=== PATIENT | female | born 1980 | race Caucasian/White ===

== ENCOUNTER 2017-02-24 22:35 | Emergency (ER) | payer OTHER ==
[2017-02-25] MEDS ORDERED: LIDOCAINE 1% INJ-PF (10 MG/ML) 30 ML SDV INJ ONE (00:13)
--- NOTE | 2017-02-25 00:20 | ER Document Report ---
ED General - General Chief Complaint: Laceration Stated Complaint: HAND LACERATION Mode of Arrival: Ambulatory Information source: Patient Notes: Patient presents emergency department with complaints of left hand laceration. She reports she was cutting potatoes with a new knife and cut her hand. No active bleeding, patient has full range of motion no deficits. Patient is right hand dominant. TRAVEL OUTSIDE OF THE [place] IN LAST 30 DAYS: No - HPI Onset: Just prior to arrival Onset/Duration: Sudden, Persistent Quality of pain: Achy Severity: Moderate Pain Level: 3 Associated symptoms: None Exacerbated by: Denies Relieved by: Denies Similar symptoms previously: No Recently seen / treated by doctor: No - Related Data Allergies/Adverse Reactions: No Known Allergies Allergy (Verified 05/20/16 11:00) Past Medical History - General Information source: Patient - Social History Smoking Status: Unknown if Ever Smoked Chew tobacco use (# tins/day): No Frequency of alcohol use: Occasional Drug Abuse: None Lives with: Family Family History: Reviewed & Not Pertinent Patient has suicidal ideation: No Patient has homicidal ideation: No - Medical History Medical History: Negative Renal/ Medical History: Denies: Hx Peritoneal Dialysis Past Surgical History: Reports: Hx Abdominal Surgery - hernia repair, Hx Section - x2, Hx Gynecologic Surgery - d&c x2, Hx Tubal Ligation - Immunizations Hx Diphtheria, Pertussis, Tetanus Vaccination: Yes Review of Systems - Review of Systems Notes: Review HPI for review of systems., All other systems negative Physical Exam - Vital signs Vitals: Temp Pulse Resp BP Pulse Ox 97.7 F 101 H 18 126/88 H 95 02/24/17 23:28 02/24/17 23:28 02/24/17 23:28 02/24/17 23:28 02/24/17 23:28 - Notes Notes: PHYSICAL EXAMINATION: GENERAL: Well-appearing and in no acute distress anxious HEAD: Atraumatic, normocephalic. EYES: Pupils equal round and reactive to light, extraocular movements intact, sclera anicteric, conjunctiva are normal. ENT: nares patent, Moist mucous membranes. NECK: Normal range of motion, supple without lymphadenopathy LUNGS: CTAB and equal. No wheezes rales or rhonchi. HEART: Regular rate and rhythm without murmurs EXTREMITIES: Normal range of motion, no pitting edema. No cyanosis. NEUROLOGICAL: Cranial nerves grossly intact. Normal sensory/motor exams. PSYCH: Normal mood, normal affect. SKIN: Warm, Dry, normal turgor,laceration to left palm between thumb and index finger, ~ 1.5 cm irregular flap - Skin Skin Temperature: Warm Skin Moisture: Dry Skin irregularity: Laceration Location of irregularity: Extremities - left hand Character of irregularity: Linear - flap Irregularity with: Tenderness Course - Re-evaluation Re-evalutation: 02/25/17 00:44 while trying to suture the patients hand she became extremely anxious and declines sutures. Emotional support was provided and pt still declined. She requests Steri-Strips. We discussed Steri-Strips versus sutures. The laceration is in a very awkward area which she flexes her hand often, Im worried the area will not close well but patient is very anxious and refusing sutures. pt was instructed on s/s infection, care of the steri strips 02/25/17 00:52 Upon discharge patient has for something stronger for the pain [employer] provided - Vital Signs Vital signs: Temp Pulse Resp BP Pulse Ox 97.7 F 100 16 119/72 96 02/24/17 23:28 02/25/17 01:03 02/25/17 01:03 02/25/17 01:03 02/25/17 01:03 Procedures - Immobilization Left Hand Immobilizer type: Mike wrap Performed by: PCT Post-Proc Neuro Vasc Exam: Unchanged from pre-exam - Laceration/Wound Repair Left Hand Wound length (cm): 2 Wound's Depth, Shape: Linear, Irregular, Flap Laceration pre-procedure: Shur-Clens applied Wound explored: Clean Wound Repaired With: Steri-strips Post-procedure NV exam normal: Yes Hands front picture: 1 - irregular linear flap laceration ~ 1.2-2cm lac Discharge - Discharge Clinical Impression: Laceration, Elevated blood pressure reading Disposition: HOME, SELF-CARE Instructions: Soap Cleansing ([facility]), Care of Steri-Strip Closure ([facility]) Additional Instructions: *You have been treated for a laceration to your left hand *Let the steri strips roll off, do not pull the steri strips off *Keep the hand clean, Monitor the site for signs of infection such as increasing pain, redness, swelling, warmth *Follow up with your primary care provider within one week for recheck *Return to ED for signs of infection, worsening condition, changes, needs, concerns Monitor your blood pressure. Your blood pressure was elevated today. This may be because you were anxious, in pain or because you need medication. It is important to follow up with your primary care provider for full evaluation. Forms: Elevated Blood Pressure
[2017-02-25] MEDS ORDERED: HYDROCODONE/ACETAMINOPHEN 5-325 MG 6 TAB/DSPK PO PRN (00:51)
[2017-02-25 01:04] VITALS: BP 119/72
== END 2017-02-25 01:03 | disposition home or self-care (01) ==
LOC: ER 22:35
PROC: 0HQGXZZ Repair Left Hand Skin, External Approach (ICD-10-PCS; principal; 2017-02-24)
DX: S61.412A Laceration without foreign body of left hand, initial encounter (principal); R03.0 Elevated blood-pressure reading, without diagnosis of hypertension; W26.0XXA Contact with knife, initial encounter; Y93.G1 Activity, food preparation and clean up
CPT/HCPCS: 99282

== ENCOUNTER 2018-06-06 21:21 | Emergency (ER) | payer OTHER ==
[2018-06-07] MEDS ORDERED: KETOROLAC TROMETHAMINE INJ/PF 30 MG/1 ML SDV IM ONE (01:17)
[2018-06-07] MEDS ORDERED: HYDROCODONE/ACETAMINOPHEN 5-325 MG (6 TAB/ER DISP) PO PRN (01:17)
[2018-06-07] MEDS ORDERED: METHOCARBAMOL 500 MG TABLET PO ONE (01:17)
[2018-06-07 01:18] VITALS: BP 120/67
--- NOTE | 2018-06-07 01:18 | ER Document Report ---
ED Neck/Back Problem - General Chief Complaint: Neck Problem Stated Complaint: NECK PAIN Time Seen by Provider: 06/07/18 00:47 Mode of Arrival: Ambulatory Information source: Patient Notes: 38-year-old female presented to ED for for complaint of severe pain to the left neck. She stated the pain started about May 08 and is she had a primary care doctor visit on 10 May. Primary care doctor offered to give her injections into the neck and the patient stated that she was too afraid to get injections into her neck. A week later the patient states the pain was so bad she went back to her primary care doctor and got 2 injections into the left side of her neck and one into the right upper arm. She states she also got a prescription for tramadol 50 mg 20 tablets which she states she took as instructed but they did not help her pain. She states she also had a x-ray and they told her that she had slight scoliosis and her neck was curved in the wrong direction and that this may be causing some of her pain. She states that she was supposed to go on vacation the day after the injection so she went on her vacation and did all of the normal things but the pain did not get better in fact it got worse. She states she came home on Sunday and by Sunday she was in the bed all day due to the pain. She states she stayed in the bed most of the day Sunday and Sunday got up Sunday evening because she thought maybe that getting up and moving around improve the pain, but it did not it actually made worse. She states she got up and down most of the day and finally came into the ER when the pain got worse she cannot stand it anymore. 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 She states she has a history of ulcerative colitis ADHD and GERD and takes medications prescribed for those ailments. TRAVEL OUTSIDE OF THE [place] IN LAST 30 DAYS: No - HPI Patient complains to provider of: Neck - Left Onset: Other - Since May 08 Onset: Gradual Timing: Still present, Worse Quality of pain: Burning, Cramping Severity: Severe Pain Level: 5 Context: Turning Recent injury: No Associated symptoms: Like prior neck/back pain, Radiation to arm, Upper back pain. denies: Radiation to chest, Radiation to leg, Sensory loss, Sweaty, Unable to urinate, Lower back pain Exacerbated by: Movement of neck Relieved by: Nothing Similar symptoms previously: Yes Recently seen / treated by doctor: Yes - Related Data Allergies/Adverse Reactions: No Known Allergies Allergy (Verified 05/20/16 11:00) Past Medical History - General Information source: Patient - Social History Smoking Status: Never Smoker Cigarette use (# per day): No Chew tobacco use (# tins/day): No Smoking Education Provided: No Frequency of alcohol use: Occasional Drug Abuse: None Lives with: Family Family History: Reviewed & Not Pertinent Patient has suicidal ideation: No Patient has homicidal ideation: No - Past Medical History 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 Pulmonary Medical History: Reports: None EENT Medical History: Reports: None Neurological Medical History: Reports: None Endocrine Medical History: Reports: None Renal/ Medical History: Reports: None Malignancy Medical History: Reports: None GI Medical History: Reports: Hx Ulcerative Colitis, Hx Colonoscopy Musculoskeletal Medical History: Reports None Skin Medical History: Reports None Psychiatric Medical History: Reports: Hx Attention Deficit Hyperactivity Disorder Traumatic Medical History: Reports: None Infectious Medical History: Reports: None Past Surgical History: Reports: Hx Section - x2, Hx Gynecologic Surgery - d&c x2, Hx Inguinal Hernia, Hx Tubal Ligation - Immunizations Hx Diphtheria, Pertussis, Tetanus Vaccination: Yes Review of Systems - Review of Systems Constitutional: No symptoms reported EENT: No symptoms reported Cardiovascular: No symptoms reported Respiratory: No symptoms reported Gastrointestinal: No symptoms reported Genitourinary: No symptoms reported Female Genitourinary: No symptoms reported Musculoskeletal: Back pain, Muscle pain, Neck pain Skin: No symptoms reported Hematologic/Lymphatic: No symptoms reported Neurological/Psychological: No symptoms reported -: Yes All other systems reviewed and negative Physical Exam - Vital signs Vitals: Temp Pulse Resp BP Pulse Ox 98.4 F 98 18 120/67 100 06/06/18 21:25 06/06/18 21:25 06/06/18 21:25 06/06/18 21:25 06/06/18 21:25 Interpretation: Normal - General General appearance: Appears well, Alert - HEENT Head: Normocephalic, Atraumatic Eyes: Normal Pupils: PERRL - Respiratory Respiratory status: No respiratory distress Chest status: Nontender Breath sounds: Normal Chest palpation: Normal - Cardiovascular Rhythm: Regular Heart sounds: Normal auscultation Murmur: No - Abdominal Inspection: Normal Distension: No distension Bowel sounds: Normal Tenderness: Nontender Organomegaly: No organomegaly - Back Back: Normal, Tender - Left side of the neck crossed the left shoulder and down the arm. No: Deformity/step-off, CVA tenderness, Vertebra tenderness, Scars, Wounds - Extremities General upper extremity: Normal inspection, Nontender, Normal color, Normal ROM , Normal temperature General lower extremity: Normal inspection, Nontender, Normal color, Normal ROM , Normal temperature, Normal weight bearing. No: Davie's sign - Neurological Neuro grossly intact: Yes Cognition: Normal Orientation: AAOx4 Justice Coma Scale Eye Opening: Spontaneous Justice Coma Scale Verbal: Oriented Justice Coma Scale Motor: Obeys Commands Justice Coma Scale Total: 15 Speech: Normal Motor strength normal: LUE, RUE, LLE, RLE Sensory: Normal - Psychological Associated symptoms: Normal affect, Agitated, Anxious - Due to the pain - Skin Skin Temperature: Warm Skin Moisture: Dry Skin Color: Normal Course - Re-evaluation Re-evalutation: 06/07/18 03:11 Patient was treated with Disputanta dispense pack, Robaxin, Toradol, and Lidoderm patch and discharged home with prescriptions for Robaxin and lidocaine. Patient was instructed to call her primary care doctor tomorrow and get medication to last until she can follow-up with a back specialist After performing a Medical Screening Examination, I estimate there is LOW risk for EXPANDING OR RUPTURED ABDOMINAL AORTIC ANEURYSM, CAUDA EQUINA SYNDROME, EPIDURAL MASS LESION, or HERNIATED DISK CAUSING SEVERE SPINAL STENOSIS, thus I consider the discharge disposition reasonable. I have reevaluated this patient multiple times and no significant life threatening changes are noted. The patient and I have discussed the diagnosis and risks, and we agree with discharging home and close follow-up. We also discussed returning to the Emergency Department immediately if new or worsening symptoms occur with the understanding that symptoms and presentations can change. We have discussed the symptoms which are most concerning (e.g., saddle anesthesia, urinary or bowel incontinence or retention, changing or worsening pain) that necessitate immediate return. - Vital Signs Vital signs: Temp Pulse Resp BP Pulse Ox 98.4 F 98 18 120/67 100 06/06/18 21:25 06/06/18 21:25 06/06/18 21:25 06/06/18 21:25 06/06/18 21:25 Discharge - Discharge Clinical Impression: Neck pain on left side Condition: Stable Disposition: HOME, SELF-CARE Additional Instructions: You were seen today for worsening neck pain on the left side of your neck. USE OF TYLENOL (ACETAMINOPHEN): Acetaminophen may be taken for pain relief or fever control. It's much safer than aspirin, offering a wider range of "safe" dosages. It is safe during . Some brand names are Tylenol, Panadol, Datril, Anacin 3, Tempra, and Liquiprin. Acetaminophen can be repeated every four hours. The following are maximum recommended dosages: WEIGHT Dose Drops Elixir Chewable( 80mg) (LBS.) drprs=droppers tsp=teaspoon 6 40 mg 0.4 ml (1/2) 6-11 80 mg 0.8 ml (full) tsp 1 tab 12-16 120 mg 1 1/2 drprs 3/4 tsp 1 1/2 tabs 17-23 160 mg 2 drprs 1 tsp 2 tabs 24-30 240 mg 3 drprs 1 1/2 tsp 3 tabs 30-35 320 mg 2 tsp 4 tabs 36-41 360 mg 2 1/4 tsp 4 1/2 tabs 42-47 400 mg 2 1/2 tsp 5 tabs 48-53 480 mg 3 tsp 6 tabs 54-59 520 mg 3 1/4 tsp 6 1/2 tabs 60-64 560 mg 3 1/2 tsp 7 tabs 65-70 600 mg 3 3/4 tsp 7 1/2 tabs 71-76 640 mg 4 tsp 8 tabs 77-82 720 mg 4 1/2 tsp 9 tabs 83-88 800 mg 5 tsp 10 tabs >89 pounds or adults 650 mg to 900 mg Acetaminophen can be repeated every four hours. Maximum dose not to exceed 4000 mg a day. These maximum recommended dosages are slightly higher than the dosages written on the product container, but these dosages are very safe and below the toxic dosage for acetaminophen. ICE PACKS: Apply ice packs frequently against the painful area. Many different schedules are recommended, such as "20 minutes on, 20 minutes off" or "one hour ice, two hours rest." If you need to work, you may need to go longer between ice treatments. You should plan to have the area ice packed AT LEAST one fourth of the time. The ice should be applied over the wrap, tape, or splint, or over a layer of cloth -- not directly against the skin. Some ice bags have a built-in cloth and can be put directly on the skin. WARM PACKS: After approximately two days, apply gentle heat (such as a heating pad or hot water bottle) for about 20 to 30 minutes about every two hours -- at least four times daily. Warmth and elevation will help you make a more rapid recovery , and will ease the pain considerably. Do not use HOT heat, and never apply heat for longer than 30 minutes. The continuous heat can invisibly damage skin and muscles -- even when no burn is seen on the surface. Damaged muscles can make you MORE sore. Exercise Program for the Shoulder Since the shoulder moves in so many directions, the joint attachment is weak. Muscles provide most of the stability to the shoulder. You must exercise your shoulder to prevent painful instability or stiffening. PASSIVE - These may be begun within a few days of the injury. While standing, lean forward, allowing the arm to hang down towards the floor. Move the arm in small circles while slowly twisting your chest towards and away from the hanging arm. Do this for one minute. ACTIVE - These may be performed when the doctor gives permission. Begin with the arms at the sides. Raise the arms forward (shoulder's width apart) until they reach shoulder level. Then slowly swing both arms back until they are aiming straight out away from each other. Then bring them forward again, and finally, lower them to your sides. Repeat 20 to 30 times. As you improve, put weights in your hands for the exercise. Start with one pound, and work up to 10 pounds. Never use more than is comfortable. Athletes may work up to 30 pounds. MUSCLE RELAXERS: Muscle relaxing medications are usually prescribed for acute muscle spasm or injury to the neck and back. They are often combined with antiinflammatory pain medication for increased relief. You may stop the muscle relaxer when the pain and stiffness have improved. Start the medication again if spasms recur. Muscle relaxers may cause drowsiness, especially with the first dose. Do not operate machinery or drive while under the effects of the medication. Most muscle relaxers last up to 24 hours. Do not combine the medication with alcohol. ORAL NARCOTIC MEDICATION: You have been given a Disputanta dispense pack for pain control. This medication is a narcotic. It's best taken with food, as nausea can result if taken on an empty stomach. Don't operate machinery or drive within six hours of taking this medication. Do not combine this medicine with alcohol, or with any medication which can cause sedation (such as cold tablets or sleeping pills) unless you get permission from the physician. Narcotics tend to cause constipation. If possible, drink plenty of fluids and eat a diet high in fiber and fruits. Toradol Injection You have been given an injection of ketorolac tromethamine (Toradol). This is an excellent, safe drug for pain control. It also has potent antiinflammatory action. You should have significant pain relief within about one hour. Toradol is not addicting and is non-sedating. It does not interfere with driving or work. Call or return if you develop itching, hives, shortness of breath, or rash. Lidoderm patch was applied to your neck tonight if this helps your pain. I have written you a prescription for the Lidoderm patches if your insurance does not cover the patches and you cannot afford the patches, you can use Aspercreme [id number] which is also lidocaine. This patch needs to be removed 12 hours from when it was applied. FOLLOW-UP CARE: If you have been referred to a physician for follow-up care, call the physician s office for an appointment as you were instructed or within the next two days. If you experience worsening or a significant change in your symptoms, notify the physician immediately or return to the Emergency Department at any time for re-evaluation. Prescriptions: Lidocaine [Lidoderm 5% (700 mg) Transdermal Patch] 1 patch TP DAILY #30 adh..patch Methocarbamol [Robaxin 500 mg Tablet] 500 mg PO BID #20 tablet Referrals: FLOYD GAINES PA-C [COMMUNITY BASED STAFF] - Follow up as needed
[2018-06-07] MEDS ORDERED: LIDOCAINE 5% (700 MG) TRANSDERMAL ADH..PATCH TP ONE (01:21)
== END 2018-06-07 01:41 | disposition home or self-care (01) ==
LOC: ER 21:21
DX: M54.2 Cervicalgia (principal); M54.9 Dorsalgia, unspecified; F41.9 Anxiety disorder, unspecified
CPT/HCPCS: 99283; 96372; J1885

== ENCOUNTER 2018-10-09 10:30 | Emergency (ER) | payer OTHER ==
[2018-10-09] MEDS ORDERED: DIPHENHYDRAMINE HCL 50 MG/ML VIAL IV ONE (11:14)
[2018-10-09] MEDS ORDERED: NORMAL SALINE 1000 ML 1,000 ML IV ONE (11:14)
--- NOTE | 2018-10-09 11:14 | ER Document Report ---
ED Headache - General Mode of Arrival: Medic Information source: Patient, Relative TRAVEL OUTSIDE OF THE [place] IN LAST 30 DAYS: No <BECKI REGALADO - Last Filed: 10/09/18 11:54> <GUSTAVO SIMS - Last Filed: 10/09/18 17:01> - General Chief Complaint: Headache >24 hrs old Stated Complaint: HEADAHCE Time Seen by Provider: 10/09/18 10:45 Notes: 38-year-old female who presents to the emergency department today with complaints of a headache with associated neck pain. Patient had a recent C5-C6 discectomy with artificial disc placement. Patient has followed up with her surgeon who performed an MRI 2 days ago which was unremarkable except for postop swelling. Patient states she has a history of migraine headaches but this feels different than her previous migraine headaches. Patient is photophobic and phonophobic. Patient states it feels like her "eyes are throbbing". Patient states she has been unable to rest because when she lays her head back on a pillow the pain increases. (BECKI REGALADO) - Related Data Allergies/Adverse Reactions: No Known Allergies Allergy (Verified 10/09/18 10:32) Past Medical History - General Information source: Patient - Social History Smoking Status: Never Smoker Family History: Reviewed & Not Pertinent Neurological Medical History: Reports: Hx Migraine GI Medical History: Reports: Hx Ulcerative Colitis, Hx Colonoscopy Psychiatric Medical History: Reports: Hx Attention Deficit Hyperactivity Disorder Past Surgical History: Reports: Hx Abdominal Surgery - hernia repair, Hx Section - x2, Hx Gynecologic Surgery - d&c x2, Hx Inguinal Hernia, Hx Tubal Ligation, Other - C5-C6 artificial disc placement - Immunizations Hx Diphtheria, Pertussis, Tetanus Vaccination: Yes <BECKI REGALADO - Last Filed: 10/09/18 11:54> Review of Systems - Review of Systems Constitutional: No symptoms reported EENT: No symptoms reported Cardiovascular: No symptoms reported Respiratory: No symptoms reported Gastrointestinal: No symptoms reported Genitourinary: No symptoms reported Female Genitourinary: No symptoms reported Musculoskeletal: See HPI, Neck pain Skin: No symptoms reported Hematologic/Lymphatic: No symptoms reported Neurological/Psychological: See HPI, Headaches -: Yes All other systems reviewed and negative <BECKI REGALADO - Last Filed: 10/09/18 11:54> Physical Exam <BECKI REGALADO - Last Filed: 10/09/18 11:54> <GUSTAVO SIMS - Last Filed: 10/09/18 17:01> - Vital signs Vitals: Temp Pulse Resp BP Pulse Ox 97.8 F 97 18 105/53 L 99 10/09/18 10:37 10/09/18 10:37 10/09/18 10:37 10/09/18 10:37 10/09/18 10:37 - Notes Notes: Physical Exam: General: Alert, appears uncomfortable. HEENT: Normocephalic. Atraumatic. PERRL. Extraocular movements intact. Oropharynx clear. Neck: Supple. Very minimal posterior C-spine musculature tender with palpation. Increased tenderness to palpation over the insertion at the nuchal ridge on the right. Complains of increasing pain when resting her head on the back of the bed however palpating the occiput does not cause increasing pain. Respiratory: No respiratory distress. Clear and equal breath sounds bilaterally. Cardiovascular: Regular rate and rhythm. Abdominal: Normal Inspection. Non-tender. No distension. Normal Bowel Sounds. Back: Non-tender. No deformity or step off. Extremities: Moves all four extremities. Upper extremities: Normal inspection. Normal ROM. Lower extremities: Normal inspection. No edema. Normal ROM. Neurological: Normal cognition. AAOx4. Normal speech. Photophobia. Phonophobia. Psychological: Normal affect. Normal Mood. Skin: Warm. Dry. Normal color. (BECKI REGALADO) Course <BECKI REGALADO - Last Filed: 10/09/18 11:54> - Consults Dr. Severino Time consulted: 15:50 Consulted provider: other - Will accept at [facility]. - Transfer of Care Care transferred to following provider: Dr. Espinal <GUSTAVO SIMS - Last Filed: 10/09/18 17:01> - Re-evaluation Re-evalutation: 10/09/18 13:16 About 1-1/2 hours after the patient had received the Benadryl 25 mg IV, Compazine 10 mg IV, Ativan 1 mg IV, and morphine 3 mg IV, she remains sound asleep. Previously, during the physical exam the patient was sitting up leaning forward with her chin on her chest not wanting to lift her head up due to the severe photophobia she was experiencing. 10/09/18 15:16 I went back to check on the patient again, she is awake, complaining of her head beginning to hurt again. On palpating the right posterior cervical muscles at the base of the skull, she screamed out in pain, jerked away and began complaining about how bad her eyes were hurting, and her head was hurting all over. On further questioning I learned that she had been receiving trigger point injections in her neck prior to her surgery and steroid injections, I am not sure if they were epidural or not. She states that the injections did not help. She also stated that the headaches got better after the surgery, but then started getting worse. I am not sure if this is because of the narcotic medication she was receiving postop or not. She was scheduled to have a CT scan of the brain done today as an outpatient at [facility]. I do not believe a CT scan of the brain is appropriate this time, as the majority of her pain is reproduced by palpating the base of the skull on the right and this is not an intracranial issue. Also she had an MRI of the brain done recently according to the patient and her spouse. On asking about wearing a cervical collar to allow her neck muscles to relax, patient states they did give her a hard cervical collar but she does not use it. She states that she has not been given or had suggested the use of a soft cervical collar. A review of the [place] narcotic database shows the patient had not been receiving pain medication to manage her occasional migraine headaches or really any other issues up until the month prior to her cervical fusion and postoperatively. Her pain does appear to be primarily coming from the right posterior cervical muscle and ligament insertions at the base of the skull along with some migraine component to her headache. (GUSTAVO SIMS) - Vital Signs Vital signs: Temp Pulse Resp BP Pulse Ox 97.8 F 97 18 105/53 L 99 10/09/18 10:37 10/09/18 10:37 10/09/18 10:37 10/09/18 10:37 10/09/18 10:37 - Transfer of Care Notes: 10/09/18 17:01 Patient is pending transport to [facility]. (GUSTAVO SIMS) Discharge <BECKI REGALADO - Last Filed: 10/09/18 11:54> <GUSTAVO SIMS - Last Filed: 10/09/18 17:01> - Discharge Clinical Impression: Neck pain on right side Migraine headache Qualifiers: Migraine type: unspecified Status migrainosus presence: without status migrainosus Intractability: not intractable Qualified Code(s): G43.909 - Migraine, unspecified, not intractable, without status migrainosus Condition: Stable Disposition: [facility] Scribe Attestation: 10/09/18 11:47 I personally performed the services described in the documentation, reviewed and edited the documentation which was dictated to the scribe in my presence, and it accurately records my words and actions. (GUSTAVO SIMS) Scribe Documentation - Scribe Written by Delon:: Delon Davila, 10/09/2018 1122 acting as scribe for :: Catracho <BECKI REGALADO - Last Filed: 10/09/18 11:54>
[2018-10-09] MEDS ORDERED: PROCHLORPERAZINE EDISYLATE INJ 10 MG/2 ML VIAL IV ONE (11:15)
[2018-10-09] MEDS ORDERED: MORPHINE SULFATE 10 MG/ML INJ IV ONE ×2 (11:15→15:57)
[2018-10-09] MEDS ORDERED: LORAZEPAM INJ 2 MG/1 ML VIAL IV ONE (11:15)
[2018-10-09] MEDS ORDERED: DEXTROSE 5%-LACTATED RINGERS 1,000 ML IV ONE (12:31)
[2018-10-09] MEDS ORDERED: METOCLOPRAMIDE HCL INJ/PF 10 MG/2 ML SDV IV ONE (15:57)
[2018-10-09] MEDS ORDERED: KETOROLAC TROMETHAMINE INJ/PF 30 MG/1 ML SDV IV ONE (15:57)
[2018-10-09] MEDS ORDERED: FENTANYL CITRATE INJ/PF 100 MCG/2 ML AMPUL IV ONE (19:20)
--- NOTE | 2018-10-09 20:27 | ER Document Report ---
Doctor's Note Notes: 10/09/18 20:26 Patient was evaluated prior to transport. Sitting upright and talking but still has a headache. Vital signs are within normal limits. Patient remained stable for transport.
[2018-10-09 20:28] VITALS: BP 118/61
== END 2018-10-09 20:32 | disposition short-term general hospital (02) ==
LOC: ER 10:30
DX: G43.909 Migraine, unspecified, not intractable, without status migrainosus (principal); M54.2 Cervicalgia; H53.149 Visual discomfort, unspecified; Z98.890 Other specified postprocedural states; Z98.1 Arthrodesis status
CPT/HCPCS: 99285; 96361; 96374; 96375; J1200; J3010; J1885; J2270; J2060; J0780; J7030

== ENCOUNTER 2019-11-16 12:51 | Emergency (ER) | payer OTHER ==
[2019-11-16] MEDS ORDERED: DIPHENHYDRAMINE HCL 50 MG/ML VIAL IV ONE (13:30)
[2019-11-16] MEDS ORDERED: PROCHLORPERAZINE EDISYLATE INJ 10 MG/2 ML VIAL IM ONE (13:30)
[2019-11-16] MEDS ORDERED: NORMAL SALINE 1000 ML 1,000 ML IV ONE (13:30)
[2019-11-16] MEDS ORDERED: ONDANSETRON HCL INJ/PF 4 MG/2 ML SDV IV ONE (13:30)
--- NOTE | 2019-11-16 13:33 | ER Document Report ---
ED Medical Screen (RME) - General Chief Complaint: Headache >24 hrs old Stated Complaint: HEADACHE/NECK PAIN/RIGHT ARM PAIN Time Seen by Provider: 11/16/19 13:26 Mode of Arrival: Ambulatory Information source: Patient Notes: 39-year-old female with history of tension headaches, Crohn's neck surgery, presents to the emergency department with complaints of a severe headache neck pain. She reports she slept on a pillow wrong 2 nights ago woke up with a neck and headache pain. Reports she is tried Tylenol and Benadryl without relief of symptoms. Patient reports she cannot even lay backwards because it hurt so much. Patient is very tearful. Denies trauma. Denies fever vomiting diarrhea but reports she is now feeling nauseated due to the pain. She also reports pain starting to run down her right arm. I have greeted and performed a rapid initial assessment of this patient. A comprehensive ED assessment and evaluation of the patient, analysis of test results and completion of the medical decision making process will be conducted by additional ED providers. TRAVEL OUTSIDE OF THE [place] IN LAST 30 DAYS: No - Related Data Allergies/Adverse Reactions: No Known Allergies Allergy (Verified 11/16/19 13:27) Past Medical History Neurological Medical History: Reports: Hx Migraine Renal/ Medical History: Denies: Hx Peritoneal Dialysis GI Medical History: Reports: Hx Ulcerative Colitis, Hx Colonoscopy Psychiatric Medical History: Reports: Hx Attention Deficit Hyperactivity Disorder Past Surgical History: Reports: Hx Abdominal Surgery - hernia repair, Hx Section - x2, Hx Gynecologic Surgery - d&c x2, Hx Inguinal Hernia, Hx Tubal Ligation, Other - C5-C6 artificial disc placement - Immunizations Hx Diphtheria, Pertussis, Tetanus Vaccination: Yes Physical Exam - Vital signs Vitals: Temp Pulse Resp BP Pulse Ox 98.2 F 84 18 117/74 98 11/16/19 13:19 11/16/19 13:19 11/16/19 13:19 11/16/19 13:19 11/16/19 13:19 Course - Vital Signs Vital signs: Temp Pulse Resp BP Pulse Ox 98.2 F 84 18 117/74 98 11/16/19 13:19 11/16/19 13:19 11/16/19 13:19 11/16/19 13:19 11/16/19 13:19
[2019-11-16] MEDS ORDERED: PROMETHAZINE HCL INJ 25 MG/1 ML VIAL IV ONE (14:03)
--- NOTE | 2019-11-16 14:12 | ER Document Report ---
ED Headache - General Chief Complaint: Headache >24 hrs old Stated Complaint: HEADACHE/NECK PAIN/RIGHT ARM PAIN Time Seen by Provider: 11/16/19 13:26 Mode of Arrival: Ambulatory Notes: HPI: 39-year-old female who presents today with the onset yesterday of an intermittent headache that is slowly progressed. She states it is from the back of the head radiating to the front of the head. Bothered by light. No blurry vision, fever, vomiting, weakness or numbness. Patient states she has a headache around 1 time per week for many years. It is worse when her menstrual periods. She does not have a neurologist. She did have an anterior discectomy about a year ago. Patient believes that this headache started when she slept on a pillow incorrectly. ROS: See HPI All other review of systems reviewed and otherwise negative Reviewed vital signs and nursing note as charted by RN. PHYSICAL EXAM: CONSTITUTIONAL: Alert and oriented and responds appropriately to questions. Well-appearing; well-nourished HEAD: Normocephalic; atraumatic EYES: PERRL; full extraocular range of motion ENT: Normal nose; no rhinorrhea; moist mucous membranes; pharynx without lesions noted NECK: Supple without meningismus; non-tender; no swelling; no bruits; no cervical lymphadenopathy, no masses CARD: Regular rate and rhythm; no murmurs; symmetric distal pulses RESP: Normal chest excursion without splinting or tachypnea; breath sounds clear and equal bilaterally EXT: Normal ROM in all joints; non-tender to palpation; no edema SKIN: No acute lesions noted NEURO: CN 2-12 intact; 5/5 bilateral upper and lower extremity strength with sensation intact to light touch PSYCH: The patient's mood and manner are appropriate. Grooming and personal hygiene are appropriate. TRAVEL OUTSIDE OF THE [place] IN LAST 30 DAYS: No - Related Data Allergies/Adverse Reactions: No Known Allergies Allergy (Verified 11/16/19 13:27) Home Medications: humira. tylenol. doesnt have whole list up here. Past Medical History - General Information source: Patient - Social History Smoking Status: Never Smoker Chew tobacco use (# tins/day): No Frequency of alcohol use: None Drug Abuse: None Family History: Reviewed & Not Pertinent Patient has suicidal ideation: No Patient has homicidal ideation: No Neurological Medical History: Reports: Hx Migraine Renal/ Medical History: Denies: Hx Peritoneal Dialysis GI Medical History: Reports: Hx Ulcerative Colitis, Hx Colonoscopy Psychiatric Medical History: Reports: Hx Attention Deficit Hyperactivity Disorder Past Surgical History: Reports: Hx Abdominal Surgery - hernia repair, Hx Section - x2, Hx Gynecologic Surgery - d&c x2, Hx Inguinal Hernia, Hx Tubal Ligation, Other - C5-C6 artificial disc placement - Immunizations Hx Diphtheria, Pertussis, Tetanus Vaccination: Yes Physical Exam - Vital signs Vitals: Temp Pulse Resp BP Pulse Ox 98.2 F 84 18 117/74 98 11/16/19 13:19 11/16/19 13:19 11/16/19 13:19 11/16/19 13:19 11/16/19 13:19 Course - Re-evaluation Re-evalutation: 11/16/19 14:11 Given the above history and physical, with no blurry vision, trauma, weakness or numbness, long history of migraines, slow development with progression, I do believe acute angle-closure glaucoma, bacterial meningitis, subarachnoid hemorrhage, all to be extremely unlikely. We will provide pain medications and place the patient on the monitor and reassess. 11/16/19 15:36 CT scan as recorded. Patient states she does feel "better". Still no focal neurological deficits or blurry vision. Patient will be discharged home with referral and strict return precautions. - Vital Signs Vital signs: Temp Pulse Resp BP Pulse Ox 98.2 F 84 18 117/74 98 11/16/19 13:19 11/16/19 13:19 11/16/19 13:19 11/16/19 13:19 11/16/19 13:19 Discharge - Discharge Clinical Impression: Headache Qualifiers: Headache type: unspecified Headache chronicity pattern: unspecified pattern Intractability: not intractable Qualified Code(s): R51 - Headache Condition: Good Disposition: HOME, SELF-CARE Additional Instructions: Come back immediately for any worsening headache, blurry vision, fevers, vomiting, weakness or numbness, or any other acute problems. Please follow-up with the primary care physician as we have discussed. Prescriptions: Promethazine HCl [Phenergan 25 mg Tablet] 25 mg PO Q6H PRN #15 tablet PRN Reason:
--- NOTE | 2019-11-16 14:55 | RADIOLOGY REPORT (SQ) ---
EXAM DESCRIPTION: CT HEAD WITHOUT COMPLETED DATE/TIME: 11/16/2019 2:40 pm REASON FOR STUDY: 15; pain COMPARISON: None. TECHNIQUE: Axial images acquired through the brain without intravenous contrast. Images reviewed wit h bone, brain and subdural windows. Images stored on PACS. All CT scanners at this facility use dose modulation, iterative reconstruction, and/or weight based d osing when appropriate to reduce radiation dose to as low as reasonably achievable (ALARA). [facility]: Dose Right [facility]: CareDose [facility]: Dose Right [facility]: Teradose 4D [facility]: [employer] RADIATION DOSE: CT Rad equipment meets quality standard of care and radiation dose reduction techniq ues were employed. CTDIvol: 53.2 mGy. DLP: 937 mGy-cm.. LIMITATIONS: None. FINDINGS: VENTRICLES: Normal size and contour. CEREBRUM: No masses. No hemorrhage. No midline shift. Age appropriate white matter. No evidence for a cute infarction. CEREBELLUM: No masses. No hemorrhage. No alteration of density. No evidence for acute infarction. EXTRA-AXIAL SPACES: No fluid collections. ORBITS AND GLOBE: No intra- or extraconal masses. Normal contour of globe without masses. CALVARIUM: No fracture. PARANASAL SINUSES: No fluid or mucosal thickening. SOFT TISSUES: No mass or hematoma. OTHER: No other significant finding. IMPRESSION: NO ACUTE INTRACRANIAL FINDINGS. EVIDENCE OF ACUTE STROKE: NO. TECHNICAL DOCUMENTATION: JOB ID: [id number] [id number] Quality ID # [id number]: Final reports with documentation of one or more dose reduction techniques (e.g., Au tomated exposure control, adjustment of the mA and/or kV according to patient size, use of iterative reconstruction technique) 2010 [employer]- All Rights Reserved Reading location - IP/workstation name: [email or web address]
[2019-11-16 16:19] VITALS: BP 116/78
== END 2019-11-16 16:01 | disposition home or self-care (01) ==
LOC: ER 12:51
DX: R51 Headache (principal); M54.2 Cervicalgia; M79.601 Pain in right arm
CPT/HCPCS: 99283; 96372; 96361; 96374; 96375; 70450; J1200; J0780; J2550; J2405; J7030